=== PATIENT | female | born 1990 | race Caucasian/White ===

== ENCOUNTER 2025-07-10 11:56 | Observation (INO) | payer OTHER, SELFPAY ==
[2025-07-10] VITALS (7 sets, daily range): BP systolic 109–126; BP diastolic 57–63; PULSE 63–72; BMI 40.4
--- NOTE | 2025-07-10 12:00 | OBADM ---
This patient, Ania Sheppard, admitted to the OB room [facility] for observation. Patient/family oriented to hospital policies and general routines including ID bracelet, bed and alarms, visiting hours, pain management, procedures, bathroom and other care routines, personal items, smoking policy, room service/diet, and visiting hours. Patient/Family are encouraged to report perceived risks to care and to ask questions if they do not understand what they are told or what they should do.
--- NOTE | 2025-07-10 13:08 | PC.NURSE ---
Dr Ash notified of patient fall, informed of no contractions and reassuring FHT's. Orders to monitor for 1 more hour and if reassuring may DC home with precautions.
--- OUTSIDE RECORDS SUMMARY | 2025-07-10 13:28 | XMS_ITS | Clinical Summary ---
Author Organization [facility] Address [address] [place] [address] Care Team Providers Care Railroad Dispatcher Name Role Phone Unavailable Primary Care Provider Unavailabl e Source Comments [facility],non-owned Affiliates and Associated Physician Practices is amultiple site organization consisting of ambulatory clinics and hospital sitesin [place], [place], [place] and [place]. This disclosure is being madepursuant to the Care Everywhere program and may not contain all information available regarding this patient. Last updated 18.[facility] Allergies Active Allergy Reactions Criticality Noted Date Comments Sulfa Drugs Unknown,Other,Diarrh ea,Dizziness,Rash, Shortness of Breath High 05/13/2021 Medications * Be aware that medications may not be up to date on this document. Alwaysverify current medications with the patient. albuterol HFA (VENTOLIN HFA) 108 (90 Base) MCG/ACT inhalerIndicati ons:Asthma Inhale 2 puffs by mouth every 4 hours as needed for Shortness of Breath or Wheezing Reasons: Asthma 1 Inhaler 9 Active Active Problems Problem Noted Date Diagnosed Date Sciatica 04/22/2019 Family History Medical History Relation Name Comments Diabetes - Type 2 Maternal Grandmother Relation Name Status Comments Father Alive Maternal Grandmother Mother Alive Social History Tobacco Use Types Packs/Day Years Used Date Smoking Tobacco: Every Day Cigarettes 0.5 10 Smokeless Tobacco: Never Tobacco Cessation:Ready to Q uit: No; Counseling Given: Yes Alcohol Use Standard Drinks/Week Comments Yes 0 (1 standard drink = 0.6 oz pur e alcohol) AUDIT-C Answer Date Recorded Frequency of Alcohol Consumption 2-4 times a thu04/22/2019 Average Number of Drinks 5 or 6 019 Frequency of Binge Drinking Never 04/07 Overall Financial Resource Strain (CARDIA) Answe r Date Recorded Difficulty of Paying Living Expenses Somewhat benjamin rd 04/22/2019 Hunger Vital Sign Answer Date Recorded Worried About Running Out of Food in the Last Ye ar Never true 04/22/2019 Ran Out of Food in the Last Year Never true 04/22/2019 PRAPARE - Transportation Answer Date Re corded Lack of Transportation (Medical) No 04/22/2019 Lack of Transportation (Non-Medical) No 04/22/2019 Education Answer Date Recorded What is the highest level of school you have completed or the highest degree you have received? GED or equivalent Comments No Sex and Gender Information Value Date Recorded Sex Assigned at Not on file Legal Sex Female 12:27 PM CDT Gender Identity Not on file Sexual Orientation Not on file Last Filed Vital Signs Vital Sign Reading Time Taken Comments Blood Pressure 123/75 07/08/2023 3:42 PM CDT Pulse 76 07/08/2023 3:42 PM CDT Temperature 36.9 C (98.4 F) 04/22/2019 3:30 PM CDT Respiratory Rate 16 04/22/2019 3:30 PM CDT Oxygen Saturation 97% 04/22/2019 3:30 PM CDT Inhaled Oxygen Concentration - - Weight 120.4 kg (265 lb 6.4 oz) 07/08/2023 3:42 PM CDT Height 167.6 cm (5' 6) 07/08/2023 3:42 PM CDT Body Mass Index 42.84 07/08/2023 3:42 PM CDT Plan of Treatment Health Maintenance Due Date Last Done Comments HEPATITIS C SCREENING 06/27/2008 DTAP/TDAP/TD VACCINES (1 - Tdap) 2009 HEPATITIS B VACCINE (1 of 3 - 19+ 3-dose series) 2009 PNEUMOCOCCAL VACCINE (1 of 2 - PCV) 2009 HPV VACCINE (1 - 3-dose SCDM series) 2017 DEPRESSION SCREENING 09/07/2024 COVID-19 VACCINE (1 - 2023-2 5 season) 2025 INFLUENZA VACCINE (#1) 2025 PAP SMEAR 05/29/2025 05/29/2022 ZOSTER VACCINE (1 of 2) 2040 HIV SCREENING Completed 06/03/2023 HIB VACCINE Aged Out No longer eligi ble based on patient's age to complete this topic MENINGOCOCCAL (Group B) VACC INE SHARED DECISION-MAKING Aged Out No longer eligibl e based on patient's age to complete this topic MENINGOCOCCAL GROUPS A/C/Y/W VACCINE Aged Out No longer eligible b ased on patient's age to complete this topic Insurance [facility] [place] Earl [address]
--- OUTSIDE RECORDS SUMMARY | 2025-07-10 13:28 | XMS_ITS | Clinical Summary ---
Author Organization [facility] Address [address] [place] [id number] Care Team Providers Care Counterintelligence Analyst Name Role Phone Myla Bravo NP Primary Care Provider [phone] Social History Tobacco Use Types Packs/Day Years Used Date Smoking Tobacco: Never Assessed Comments Unknown Sex and Gender Information Value Date Recorded Sex Assigned at Not on file Legal Sex Female 8:21 PM CDT Gender Identity Not on file Sexual Orientation Not on file Plan of Treatment Health Maintenance Due Date Last Done Comments Cervical Cancer Screening Pa p Smear (Age 30 to 64) Every 3 Years 1990 Annual Physical 1993 Hepatitis C 2008 DTaP, Tdap and Td Vaccines ( 1 - Tdap) 2009 Hepatitis B Vaccines (1 of 3 - 19+ 3-dose series) 2009 HPV Vaccines (1 - 3-dose SCD M series) 2017 Cervical Cancer Screening Pa p with HPV Testing (Age 30 to 64) Every 5 Years 2020 Cervical Cancer Screening with HPV 2020 COVID-19 Vaccine (2024-2 6 season) 2025 Influenza Adult (#1) 2025 Hepatitis A Vaccines Aged Out No long er eligible based on patient's age to complete this topic Meningococcal B Vaccine Aged Out No l onger eligible based on patient's age to complete this topic Meningococcal Vaccine Aged Out No anatoliy johnny eligible based on patient's age to complete this topic Pneumococcal Vaccine: Pediat rics (0 to 5 Years) and At-Risk Patients (6 to 49 Years) Aged Out No longer eligible b ased on patient's age to complete this topic RSV Immunizations Under 20 Months Aged Out No longer eligible based on patient's age to complete this topic Care Teams Counterintelligence Analyst Relationship Specialty Start Date End Date Myla Bravo NP [facility] General 10/18/14
--- OUTSIDE RECORDS SUMMARY | 2025-07-10 13:28 | XMS_ITS | Data Portability ---
Author Organization [facility] [place] Address [address] [place] [address] [place] [address] Assessment No assessment recorded. Plan of Treatment Reminders Order Date Submit Date Provider Last Modified By Organization Details Last Modified Time Details Appointments OB ROUTINE 2024 01:15P Christopher MERAZ MD Not available Not available Not available U/S OB GROWTH 2024 11:00A M ULTRASOUND Not available Not available Not available OB ROUTINE 2024 11:30A M ALFONSO MERAZ MD Not available Not available Not available Lab drug screen, urine 2024 025 [email or web address] [place], [address], [place], [address], 07/04/2025 13:11:27 culture , urine 2024 025 [facility] (Lab), [address] [facility] [address], [place], [address], 07/06/2025 11:08:02 Referral None recorde d. Procedures None recorde d. Surgeries None recorde d. Imaging US, obstetr ic, follow- up 2024 025 [facility], [address], [address], [place], [address], 07/06/2025 15:56:53 US, obstetr ic, follow- up 2024 025 [email or web address] [place], [address], [place], [address], 06/06/2025 15:04:50 US, obstetr ic, 2nd or 3rd trimest er 2024 025 [place], [address], [place], [address], 05/09/2025 18:33:59 Medication Orders None recorde d. Patient TargetsNo targets recorded. Patient InstructionsNo instructions recorded. Reason for Referral None Reported. Results Created Date Observation Date Name Description Value Unit Range Abnormal Flag Note LastModifiedBy Organization Detail LastModifiedTime 05/09/2005/09/2025 US, obste tric, 2nd or 3rd trime ster No observ ation record ed. [email or web address] [place] [address], [place], [address], 05/09/2025 12:58:46 05/09/20 25 05/09/2025 US, obste tric, 2nd or 3rd trime ster No observ ation record ed. [email or web address] [address], [place], [address], 05/10/2025 16:00:47 06/06/20 25 06/06/2025 US, obste tric, follo w-up No observ ation record ed. [email or web address] Janice [address], [place], [address], 06/09/2025 17:44:36 06/06/20 25 06/06/2025 US, obste tric, follo w-up No observ ation record ed. [email or web address] [place] [address], [place], [address], 06/06/2025 15:04:12 07/04/20 25 07/04/2025 US, obste tric, follo w-up No observ ation record ed. [email or web address] [address], [place], [address], 07/06/2025 17:52:33 07/04/20 25 07/04/2025 US, obste tric, follo w-up No observ ation record ed. [email or web address] [place] [address], [place], [address], 07/04/2025 13:40:06 Result Notes None recorded. Problems Name Problem SNOMED Code Status Onset Date Resolution Date Notes Provider Name and Address Organization Details Recorded Time Diamniot ic-monoc horionic twins 09535885 Completed TTTS screenin g x2 weeks starting at 16 week [facility] 11:36:26 Obesity 931811343 Completed 34wk antenata l testing Rustsundar López [facility] 3 11:36:26 Diamniot ic-monoc horionic twins 16029544 Active 2022 G3 pregnanc y; TTTS with demise of one twin ALFONSO MERAZ MD [address], [place], [address], [facility] 4 15:39:33 Pregnanc y 28105321 Completed 202208/17/2023 Marce [facility], [facility] 5 12:41:07 Pregnanc y 23216949 Active 2024 Marce [facility], [facility] 5 12:41:07 Abnormal placenta affectin g manageme nt of mother 21781768 Active 2024 serial growth US ALFONSO MERAZ MD [address], [place], [address], [facility] 5 12:11:25 Steriliz ation educatio n Active 2024 ALFONSO MERAZ MD [address], [place], [address], [facility] 5 12:11:46 Past pregnanc y history of section 185241124 Active 2024 desires repeat with tubal ALFONSO MERAZ MD [address], [place], [address], [facility] 5 12:12:01 Problem Notes None recorded. Procedures Surgical History Date Name Laterality Status Provider Name and Address Organization Details Recorded Time 4 Caesarean Section completed LISSETT Peralta [facility] 02/22/2025 14:34:09 2 Date of Last Pap Smear completed Arelis Benites [facility] 06/03/2023 15:38:01 7 procedure on knee completed Arelis Benites [facility] 06/03/2023 15:42:19 7 procedure on knee completed Arelis Benites [facility] 06/03/2023 15:42:14 4 Caesarean Section completed Arelis Benites [facility] 06/03/2023 15:41:52 Imaging Results None recorded. Procedure Notes None recorded. Medical Equipment None Reported. Allergies Allergen ID Allergen Name Allergen Category Reaction Reaction Severity Criticality Documentation Date Start Date Code Code System Note Provider Name and Address Organization Details Recorded Time 64310 Substance with sulfonami de structure and antibacte rial mechanism of action (substanc e) medicatio n Not available Not available Not available 06/03/2023 34495 8003 SNOMED Arelis Benites [facility] 3 15:38:01 Medications Name Sig Start Date Stop Date Status Note LastModified by Organization Details LastModified Time desonide 0.05 % topical cream APPLY TOPICALLY TO THE AFFECTED AREA TWICE DAILY FOR 10 DAYS 02/22 completed Not Available Not Available Not Available acetaminoph en 500 mg tablet 12/08 completed Not Available Not Available Not Available gentamicin 0.3 % eye drops INSTILL 1 DROP IN BOTH EYES FOUR TIMES DAILY 06/03 completed Not Available Not Available Not Available nifedipine 10 mg capsule TAKE 1 CAPSULE BY MOUTH EVERY 6 HOURS FOR 3 DOSES 12/08 completed Not Available Not Available Not Available docusate sodium 100 mg capsule 12/08 completed Not Available Not Available Not Available gabapentin 300 mg capsule 12/08 completed Not Available Not Available Not Available ibuprofen 600 mg tablet 12/08 completed Not Available Not Available Not Available polyethylen e glycol 3350 17 gram/dose oral powder 12/08 completed Not Available Not Available Not Available oxycodone 5 mg tablet 12/08 completed Not Available Not Available Not Available active Not Available Not Avai lable Not Available FeroSul 325 mg (65 mg iron) tablet TAKE 1 TABLET BY MOUTH DAILY WITH BREAKFAST 12/08 completed Not Available Not Available Not Available Vitals Date Recorded Body height Body mass index (BMI) Body weight Systolic And Diastolic Provider Name and Address Organization Details Last Updated DateTime 05/09/2025 165.1 cm 42.8 kg/m2 554261.24 g 127/83 mm[Hg] Danna Ernst [facility] 05/09/2025 10:50:12 Date Recorded Body weight Body mass index (BMI) Body height Systolic And Diastolic Provider Name and Address Organization Details Last Updated DateTime 06/06/2025 289090.38 568 g 43.9 kg/m2 165.1 cm 129/81 mm[Hg] Casandra [facility] 06/06/2025 12:41:29 Date Recorded Body weight Systolic And Diastolic Provider Name and Address Organization Details Last Updated DateTime 07/04/2025 843551.34659 g 120/81 mm[Hg] [facility] 07/04/2025 13:07:28 Social History Question Answer Notes LastModified by Organizat ion Details LastModified Time Tobacco Smoking Status Former Smoker Arelis barber, [facility] 06/03/2023 15:41:33 If You Are , What Was Your Level Of Alcohol Consumption Prior To ? Occasional [email or web address] Information not available 06/03/2023 Are You Blind Or Do You Have Difficulty Seeing? No [email or web address] Information not available 06/03/2023 What Is Your Level Of Caffeine Consumption? Moderate [email or web address] Information not available 06/03/2023 How Much Tobacco Do You Chew? None [email or web address] Information not available 06/03/2023 In The 14 Days Before Symptom Onset, Have You Had Close Contact With A Laboratory-confir med COVID-19 While That Case Was Ill? No [email or web address] Information not available 06/03/2023 In The 14 Days Before Symptom Onset, Have You Had Close Contact With A Person Who Is Under Investigation For COVID-19 While That Person Was Ill? No [email or web address] Information not available 06/03/2023 Have You Been To An Area Known To Be High Risk For COVID-19? No [email or web address] Information not available 06/03/2023 Are You Deaf Or Do You Have Serious Difficulty Hearing? No [email or web address] Information not available 06/03/2023 What Type Of Diet Are You Following? REGULAR [email or web address] Information not available 05/09/2025 What Is The Highest Grade Or Level Of School You Have Completed Or The Highest Degree You Have Received? MV06848-5 [email or web address] Information not available 06/03/2023 Are There Any Guns Present In Your Home? No [email or web address] Information not available 06/03/2023 Do You Use Your Seat Belt Or Car Seat Routinely? Yes [email or web address] Information not available 06/03/2023 Do You Have Smoke And Carbon Monoxide Detectors In Your Home? Yes [email or web address] Information not available 06/03/2023 How Much Tobacco Do You Smoke? No [email or web address] Information not available 06/03/2023 Do You Use Sunscreen Routinely? Yes [email or web address] Information not available 06/03/2023 Has Tobacco Cessation Counseling Been Provided? No [email or web address] Information not available 06/03/2023 Have You Used IV Drugs? No [email or web address] Information not available 06/03/2023 Do You Have Difficulty Walking Or Climbing Stairs? No Information not available 06/03/2023 Sex: Unknown Functional Status Question Answer Note LastModified by Organizat ion Details LastModified Time Do you use any illicit or recreational drugs? No [email or web address] Information not available 06/03/2023 Do you or have you ever used any other forms of tobacco or nicotine? Yes [email or web address] Information not available 06/03/2023 What is your level of alcohol consumption? None [email or web address] Information not available 06/03/2023 Are you able to walk independently without assistance or assistive devices? YESWOREST [email or web address] Information not available 06/03/2023 Are you able to care for yourself independently? Yes [email or web address] Information not available 06/03/2023 What is your occupation? Stay at home mom [email or web address] Information not available 06/03/2023 Do you have difficulty dressing, bathing, grooming, or toileting? No [email or web address] Information not available 06/03/2023 Do you or have you ever used e-cigarettes or vape? Former user of electronic cigarettes [email or web address] Information not available 06/03/2023 What is your exercise level? Occasional [email or web address] Information not available 06/03/2023 Mental Status Question Answer Note LastModified by Organization D etails LastModified Time Do you feel stressed (tense, restless, nervous, or anxious, or unable to sleep at night)? UE4564-6 [email or web address] Information not available 06/03/2023 Family History Relationship Description Onset Age of this Age Resolved Age Notes LastModified by Organization Details LastModified Time Maternal Grandmother Diabetes mellitus [email or web address] Not available 06/03 15:41:02 Medical History Condition Response Allergies (Food, seasonal, environmental ) N Other N Breast Cancer N Drug/Latex Allergies/Reactions Y Blood Transfusion N Dermatologic Disorders N Lung Disease N Defects or Inherited Disease N Breast Problem N Gestational Diabetes N Hematologic disorders N Anesthesia Complications N History of STI N Deep Vein Thrombosis N Polycystic ovary syndrome Y Anxiety Disorder N Autoimmune disease N Arthritis N Infertility Y Polyps N Acid Reflux (GERD) N History of abnormal pap N Cancer N Stroke N Varicosities N Neurologic/Epilepsy N Endometriosis N High Cholesterol N Headaches N Fibromyalgia N Kidney Disease N Heart Problems N Kidney or Bladder Problems N Thyroid Problems N GI Problems N Eating Disorder N Anemia N Art (IVF or FET) N Psychiatric Illness N Ovarian Cancer N Diabetes N Pulmonary (TB, Asthma) N Hepatitis/Liver Disease N No Past Medical History N Eczema N Urinary Tract Infection N Abuse/Domestic Violence N Asthma N Trauma/Violence N Depression/ depression N Heart Disease N Pre-Eclampsia N Hypertension N Osteoporosis N Thrombophilias N Gynecological History Statement/Question Response Date of LMP 12/20/2024 On BCP's at Conception? N N Was last menstrual period normal Y STIs/STDs N HPV Vaccine N Duration of Flow (days) 7 Current Control Method Age at First Child 23 Frequency of Cycle (Q days) 34 Sexually Active? Y Age of first menstrual cycle 9 Date of Last Pap Smear 05/08/2022 Sexual Problems? N Desired Control Method None LMP Definite N Obstetrics History GPAL:G 6 P 2 1 2 3 Type Value Full Term 2 Spontaneous 2 Premature 1 Living 3 Total 6 Past Encounters Encounter ID Performer Location Encounter Start Date Encounter Closed Date Diagnosis/Indication Diagnosis SNOMED-CT Code Diagnosis ICD10 Code Diagnosis IMO Codes Diagnosis Note [id number] Arnold Herrera MD [place] [address],[place] [address] 06/03/2023 14:10:43 06/03/2023 15:29:55 screening 603942391 Z36.87 O30.031 Z3A.11 [id number] Mary Shultz [facility] [address],[place] [address] 06/03/2023 14:14:33 06/03/2023 16:23:10 Amenorrhea 80466794 N91.2 Venereal d isease screening 292591473 Z11.3 Diamniotic -monochorio julieta twins 93295525 O30.039 plan 12 week new ob and first look then ref to [facility] today, declines NIPS/bryce er [id number] ALFONSO MERAZ MD [place] [address],[place] [address] 06/16/2023 13:53:48 06/16/2023 14:56:13 screening 151354481 Z36.82 Z3A.13 [id number] ALFONSO MERAZ MD [place] [address],[place] [address] 06/16/2023 13:57:39 06/16/2023 16:44:01 Routine care 811784087 Z34.91 Monochorio julieta diamniotic twin 073272982 O30.009 - needs q2 week US for TTTS screening [id number] ALFONSO MERAZ MD [place] [address],[place] [address] 12/09/2023 12:37:59 12/09/2023 15:46:28 care 727081360 Z39.2 S/p RLTCS 6 weeks ago here today for a visit.1. Patient recovering well2. Plans to continue breast feeding3. Interested in condoms for contracept ion at this time. Risks, benefits, and alternativ es reviewed with the patient4. Patient instructed to follow up in 1 year for well woman exam unless need arises prior [id number] ALFONSO MERAZ MD [place] [address],[place] [address] 02/22/2025 13:53:16 02/22/2025 14:18:34 [id number] ALFONSO MERAZ MD [place] [address],[place] [address] 02/22/2025 13:53:28 02/22/2025 15:14:32 Past history of section 457640769 Z98.278 6038581 - s/p 2 LTCS, last 10/2023- recommend repeat c section due to increased risk of uterine rupture after multiple c sections test positive 032923000 Z32.01 244300 1. Exam today within normal limits.2. Ultrasound today confirms GA and viability. EDC . GC/Clamydi a testing done: will f/u as indicated. Patient declined pap smear4. ACOG guidelines and plan of care for reviewed with patient. All questions answered.5 . Return to office at 12 weeks for new OB visit6. Will need new OB labs at next visit.7. Genetic screening: declined. [id number] ALFONSO MERAZ MD [place] [address],[place] [address] 03/14/2025 11:19:42 03/14/2025 12:11:45 screening 133140552 Z36.82 Z3A.12 [id number] MD Hema [facility] [address],[place] [address] 03/14/2025 11:20:07 03/14/2025 13:29:00 care status 702422946 Z34.81 [id number] MD Hema [facility] [address],[place] [address] 04/11/2025 10:39:40 04/11/2025 11:29:09 care status 127784629 Z34.82 40579744 [id number] ALFONSO MERAZ MD [place] [address],[place] [address] 05/09/2025 09:25:49 05/09/2025 10:56:26 Ultrasound scan - obstetric 687526740 Z36.3 Z3A.20 12905 [id number] ALFONSO MERAZ MD [place] [address],[place] [address] 05/09/2025 09:26:20 05/09/2025 12:17:58 Abnormal placenta affecting management of mother 39398804 O43.199 76597104 - serial growth US Past pregn nancy history of section 893879710 Z98.891 52791207 - s/p 2 LTCS, last 10/2023- recommend repeat c section due to increased risk of uterine rupture after multiple c sections Consultation 75310254 Z3 0.09 716421 - patient desires permanent sterilizat ion- discussed risks, benefits, and alternativ es of bilateral salpingect ke[place], including risks of bleeding, infection and injury to surroundin g organs. Also discussed alternativ e contracept donato options including partner vasectomy and patient declines. Gestation period, 20 weeks 29572235 Z3A.20 4549926 - continue PNV [id number] ALFONSO MERAZ MD [place] [address],[place] [address] 06/06/2025 11:51:51 06/06/2025 13:01:25 anatomy study 495497544 Z36.2 Z3A.24 1490085251 [id number] ALFONSO MERAZ MD [place] [address],[facility] [address] 06/06/2025 11:54:10 06/06/2025 16:04:14 Abnormal placenta affecting management of mother 69484547 O43.199 32413500 - serial growth US Past pregn nancy history of section 288135853 Z98.891 89784960 - s/p 2 LTCS, last 10/2023- recommend repeat c section due to increased risk of uterine rupture after multiple c sections Gestation period, 24 weeks 346138655 Z3A.24 4840241 [id number] ALFONSO MERAZ MD [place] [address],[place] [address] 07/04/2025 11:56:33 07/04/2025 13:30:47 Maternal obesity complicating , childbirth and the puerperium, antepartum 6553213316 07 O99.210 Z3A.28 5694789383 [id number] ALFONSO MERAZ MD [place] [address],[place] [address] 07/04/2025 11:58:22 07/04/2025 14:15:56 state of fetus 68747471 Z34.90 3937924246 Abnormal p lacenta affecting management of mother 90398060 O43.199 44430184 - serial growth US Past pregn nancy history of section 012733625 Z98.891 33062142 - s/p 2 LTCS, last 10/2023- recommend repeat c section due to increased risk of uterine rupture after multiple c sections Gestation period, 28 weeks 33816268 Z3A.28 9302302 Health Concerns Section Related Observation LastModified by Organization Detai ls LastModified Time None Recorded Concern Status LastModified by Organization Details LastModified Time None Recorded Advance Directives Directive None Recorded Payers Insurance Date Sequence Insurance Name Policy Number Policy Darnell Covered Member ID Darnell Member ID Guarantor Name 07/04/2025 1 BRIANNA [id number] Rodrigo Sheppard [id number] 2 Ania Sheppard Notes Date Note Type Note Provider Name and Address Organization Details Recorded Time 05/09/2025 text/html Generic HPI TemplateReported by Patient ALFONSO MERAZ MD [address], [place], [address], [facility] 05/09/2025 12:13:35 06/06/2025 text/html Generic HPI TemplateReported by Patient ALFONSO MERAZ MD [address], [place], [address], [facility] 06/06/2025 15:51:39 07/04/2025 text/html Generic HPI TemplateReported by Patient ALFONSO MERAZ MD [address], [place], [address], [facility] 07/04/2025 14:14:44 OBGyn Episode Ob Episode Information Episode Created Date Number of Fetuses Patient Bloodtype Patient rh Status Prepregnancy Weight lbs Domestic Partner Domestic Partner Phone Father Name Rotary Cutter Status 03/14/20 25 1 CLOSED Fetus Data First Name Last Name Admitted to NICU Weight (g) Sex Living Outcome Pediatric Complications Fetus ID Race Codes Race Delivery Type , Spontane ous [id number] Justin Calculation Initial Justin Date Initial Exam Date Initial Exam Provider Initial Ultrasound Date Last Menstrual Period Date Ultra Sound Weeks Gestation 0 Eighteen To Twenty Week Justin Update Ultra Sound Date Fundal Height At Umbil Quickening Date Ultra Sound Latest Weeks Gestation Final Justin Confirmed By Final Justin Confirmed Date Final Justin Date Ultra Sound Latest Days Gestation 0 0 Menstrual History Last Menstrual Date Menses Monthly On Bcp Conception Prior Menses Frequency Hcg Plus Date Menarche Onset Age Delivery Information Delivery Date Delivery Type Labor Anesthesia Weeks Gestation Incision Type Labor Labor Length Hrs Delivered By Post Complications Tubal Sterilization Discharge Date Comments 5 Discharge Information Feeding Method Contraceptive Method Maternal HG B and HCT Levels Ob Episode Information Episode Created Date Number of Fetuses Patient Bloodtype Patient rh Status Prepregnancy Weight lbs Domestic Partner Domestic Partner Phone Father Name Rotary Cutter Status 06/03/20 23 1 CLOSED Fetus Data First Name Last Name Admitted to NICU Weight (g) Sex Living Outcome Pediatric Complications Fetus ID Race Codes Race Delivery Type 3656.85 8704 F Full Term [id number] Primary Justin Calculation Initial Justin Date Initial Exam Date Initial Exam Provider Initial Ultrasound Date Last Menstrual Period Date Ultra Sound Weeks Gestation 0 Eighteen To Twenty Week Justni Update Ultra Sound Date Fundal Height At Umbil Quickening Date Ultra Sound Latest Weeks Gestation Final Justin Confirmed By Final Justin Confirmed Date Final Justin Date Ultra Sound Latest Days Gestation 0 0 Menstrual History Last Menstrual Date Menses Monthly On Bcp Conception Prior Menses Frequency Hcg Plus Date Menarche Onset Age Delivery Information Delivery Date Delivery Type Labor Anesthesia Weeks Gestation Incision Type Labor Labor Length Hrs Delivered By Post Complications Tubal Sterilization Discharge Date Comments 4 41.3 failed induction Discharge Information Feeding Method Contraceptive Method Maternal HG B and HCT Levels Ob Episode Information Episode Created Date Number of Fetuses Patient Bloodtype Patient rh Status Prepregnancy Weight lbs Domestic Partner Domestic Partner Phone Father Name Rotary Cutter Status 02/23/20 25 1 CLOSED Fetus Data First Name Last Name Admitted to NICU Weight (g) Sex Living Outcome Pediatric Complications Fetus ID Race Codes Race Delivery Type 2721.55 2 F Full Term [id number] Repeat Justin Calculation Initial Justin Date Initial Exam Date Initial Exam Provider Initial Ultrasound Date Last Menstrual Period Date Ultra Sound Weeks Gestation 0 Eighteen To Twenty Week Justin Update Ultra Sound Date Fundal Height At Umbil Quickening Date Ultra Sound Latest Weeks Gestation Final Justin Confirmed By Final Justin Confirmed Date Final Justin Date Ultra Sound Latest Days Gestation 0 0 Menstrual History Last Menstrual Date Menses Monthly On Bcp Conception Prior Menses Frequency Hcg Plus Date Menarche Onset Age Delivery Information Delivery Date Delivery Type Labor Anesthesia Weeks Gestation Incision Type Labor Labor Length Hrs Delivered By Post Complications Tubal Sterilization Discharge Date Comments 4 32.4 twin 1 lost Discharge Information Feeding Method Contraceptive Method Maternal HG B and HCT Levels Ob Episode Information Episode Created Date Number of Fetuses Patient Bloodtype Patient rh Status Prepregnancy Weight lbs Domestic Partner Domestic Partner Phone Father Name Rotary Cutter Status 06/03/20 23 1 CLOSED Fetus Data First Name Last Name Admitted to NICU Weight (g) Sex Living Outcome Pediatric Complications Fetus ID Race Codes Race Delivery Type 3770.25 6704 M Full Term [id number] V Back Justin Calculation Initial Justin Date Initial Exam Date Initial Exam Provider Initial Ultrasound Date Last Menstrual Period Date Ultra Sound Weeks Gestation 0 Eighteen To Twenty Week Justin Update Ultra Sound Date Fundal Height At Umbil Quickening Date Ultra Sound Latest Weeks Gestation Final Justin Confirmed By Final Justin Confirmed Date Final Justin Date Ultra Sound Latest Days Gestation 0 0 Menstrual History Last Menstrual Date Menses Monthly On Bcp Conception Prior Menses Frequency Hcg Plus Date Menarche Onset Age Delivery Information Delivery Date Delivery Type Labor Anesthesia Weeks Gestation Incision Type Labor Labor Length Hrs Delivered By Post Complications Tubal Sterilization Discharge Date Comments 2 39.4 Discharge Information Feeding Method Contraceptive Method Maternal HG B and HCT Levels Ob Episode Information Episode Created Date Number of Fetuses Patient Bloodtype Patient rh Status Prepregnancy Weight lbs Domestic Partner Domestic Partner Phone Father Name Rotary Cutter Status 06/16/20 23 2 O Positive 260 CLOSED Fetus Data First Name Last Name Admitted to NICU Weight (g) Sex Living Outcome Pediatric Complications Fetus ID Race Codes Race Delivery Type [id number] Problems Problem Notes declined cf/sma/niptMFM on 09/20/22 315p U/S ONLYRPR +, reflex negative - repeat at 28 wk Problem Name Start Date End Date Resolution Snomed Code Not e Diamniotic-monochori onic twins [id number] TTTS screening x2 weeks starting at 16 week Obesity [id number] 34wk anten atal testing Justin Calculation Initial Justin Date Initial Exam Date Initial Exam Provider Initial Ultrasound Date Last Menstrual Period Date Ultra Sound Weeks Gestation 12/22/2023 06/16/2023 06/03/2023 11 Eighteen To Twenty Week Justin Update Ultra Sound Date Fundal Height At Umbil Quickening Date Ultra Sound Latest Weeks Gestation Final Justin Confirmed By Final Justin Confirmed Date Final Justin Date Ultra Sound Latest Days Gestation 0 0 Pre- Flowsheet Flowsheet Date 06/16/2023 Vazquez Score Blood Edema Fundus Height Fundus Units Glucose Ketones Leukocytes Nitrite Labor Signs Protein Cervic Dilation Cervic Effacement Cervic Station Type Weight in lbs Pre/Post Dialysis Refused BP Diastolic BP Location Tested BP Systolic BP Type Fetus Heart Rate Present Fetus Movement Comments Flowsheet Date 06/16/2023 Vazquez Score Blood Edema Fundus Height Fundus Units Glucose Ketones Leukocytes Nitrite Labor Signs Protein Cervic Dilation Cervic Effacement Cervic Station neg none 13 trace Type Weight in lbs Pre/Post Dialysis Refused Weight 262.169803011711 BP Diastolic BP Location Tested BP Systolic BP Type 83 133 Fetus Heart Rate Present A 150 B 170 Fetus Movement A No B No Comments Presents to establish OB car e. has been complicated by mono-di twins. 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 Will start TTTS screening at 16 week with q2 week US. [facility] visit scheduled for 07/08. NB/NT wnl x2. Nausea improving. Declines genetic testing. Menstrual History Last Menstrual Date Menses Monthly On Bcp Conception Prior Menses Frequency Hcg Plus Date Menarche Onset Age Genetic Screening And Infection History Question Response Note Mental Retardation/Autism false Patient's Age Will Be 35 Years Or Older At Estim ated Date of Delivery false Thalassemia (Lebanese, Faroese, Mediterranean, Or Background): MCV < 80 false Neural Tube Defect (Meningomyelocele, Spina Bifi da, Or Anencephaly) false Congenital Heart Defect false Down Syndrome false Beau-Sachs (eg, Hoahaoism, Cajun, Micronesian-Italian) f alse Noy Disease false Sickle Cell Disease Or Trait () false Hemophilia Or Other Blood Disorders false Muscular Dystrophy false Cystic Fibrosis false [place]'s Chorea false Intellectual Disability/Autism false If Yes, Was Person Tested For Fragile X? false Other Inherited Genetic Or Chromosomal Disorder false Maternal Metabolic Disorder (eg, Type 1 Diabetes , PKU) false Patient Or Baby's Father Had A Child With Defects Not Listed Above false Recurrent Loss, Or A Stillbirth false Medications (including Suppl ements, Vitamins, Herbs, OTC Drugs), Illicit/Recreational Drugs, Alcohol false If Yes, Agent(s) And Strength/Dosage false Any Other Genetic History false Live With Someone With TB Or Exposed To TB false Patient Or Partner Has History Of Genital Herpes false Rash Or Viral Illness Since Last Menstrual Perio d false History Of STD, Gonorrhea, Chlamydia, HPV, Syphi lis false Other Infection History false History of HIV false History of Hepatitis false Prior GBS-infected child false Hemoglobinopathy Or Carrier false Other Structural Defect false Recent Travel History Outside of Country false Delivery Information Delivery Date Delivery Type Labor Anesthesia Weeks Gestation Incision Type Labor Labor Length Hrs Delivered By Post Complications Tubal Sterilization Discharge Date Comments Discharge Information Feeding Method Contraceptive Method Maternal HG B and HCT Levels Ob Episode Information Episode Created Date Number of Fetuses Patient Bloodtype Patient rh Status Prepregnancy Weight lbs Domestic Partner Domestic Partner Phone Father Name Rotary Cutter Status 03/14/20 25 1 O Positive Rordigo Sheppard OPEN Fetus Data First Name Last Name Admitted to NICU Weight (g) Sex Living Outcome Pediatric Complications Fetus ID Race Codes Race Delivery Type [id number] Problems Problem Notes Problem Name Start Date End Date Resolution Snomed Code Not e Abnormal placenta affecting management of mother 05/09/2025 [id number] serial growth U S Past history of section 05/09/2025 [id number] desires repeat with tubal Sterilization education 05/09/2025 13853 [id number] Justin Calculation Initial Justin Date Initial Exam Date Initial Exam Provider Initial Ultrasound Date Last Menstrual Period Date Ultra Sound Weeks Gestation 09/26/2025 03/14/2025 02/22/2025 12/20/2024 9 Eighteen To Twenty Week Justin Update Ultra Sound Date Fundal Height At Umbil Quickening Date Ultra Sound Latest Weeks Gestation Final Justin Confirmed By Final Justin Confirmed Date Final Justin Date Ultra Sound Latest Days Gestation 0 03/14/2025 09/26/19 26 0 Pre-anand Flowsheet Flowsheet Date 03/14/2025 Vazquez Score Blood Edema Fundus Height Fundus Units Glucose Ketones Leukocytes Nitrite Labor Signs Protein Cervic Dilation Cervic Effacement Cervic Station Type Weight in lbs Pre/Post Dialysis Refused Weight 251.061952852807 BP Diastolic BP Location Tested BP Systolic BP Type 82 L arm 129 sitting Fetus Heart Rate Present A Present Fetus Movement Comments Patient presents to [facility] care. Hx of mono-di twin in her last , complicated by TTTS and demise of 1 twin. Hx of c section x2, plan for repeat. otherwise uncomplicated. No nausea or cramping. NT/NB wnl today, declines NIPT. Will draw new OB labs today. RTC 4 weeks for routine care. Flowsheet Date 04/11/2025 Vazquez Score Blood Edema Fundus Height Fundus Units Glucose Ketones Leukocytes Nitrite Labor Signs Protein Cervic Dilation Cervic Effacement Cervic Station Type Weight in lbs Pre/Post Dialysis Refused Weight 254.469336937799 BP Diastolic BP Location Tested BP Systolic BP Type 80 L arm 136 sitting Fetus Heart Rate Present A 145 Fetus Movement A Yes Comments Doing well, some flutters. N o cramping or bleeding. New OB labs wnl. Discussed anatomy US for next visit. RTC 4 weeks. Flowsheet Date 05/09/2025 Vazquez Score Blood Edema Fundus Height Fundus Units Glucose Ketones Leukocytes Nitrite Labor Signs Protein Cervic Dilation Cervic Effacement Cervic Station Type Weight in lbs Pre/Post Dialysis Refused BP Diastolic BP Location Tested BP Systolic BP Type Fetus Heart Rate Present Fetus Movement Comments Flowsheet Date 05/09/2025 Vazquez Score Blood Edema Fundus Height Fundus Units Glucose Ketones Leukocytes Nitrite Labor Signs Protein Cervic Dilation Cervic Effacement Cervic Station Type Weight in lbs Pre/Post Dialysis Refused Weight 257.880995349677 BP Diastolic BP Location Tested BP Systolic BP Type 83 L arm 127 sitting Fetus Heart Rate Present A Present Fetus Movement A Yes Comments Doing well, good movem ent. No cramping or bleeding. Anatomy incomplete, needs heart views and left fingers. Marginal cord insertion, discussed serial growth US. She would also like to discuss bilateral salpingectomy at time of her c section. She has completed childbearing and would like a permanent form of control. r/b/a discussed. RTC 4 weeks. Flowsheet Date 06/06/2025 Vazquez Score Blood Edema Fundus Height Fundus Units Glucose Ketones Leukocytes Nitrite Labor Signs Protein Cervic Dilation Cervic Effacement Cervic Station Type Weight in lbs Pre/Post Dialysis Refused BP Diastolic BP Location Tested BP Systolic BP Type Fetus Heart Rate Present Fetus Movement Comments Flowsheet Date 06/06/2025 Vazquez Score Blood Edema Fundus Height Fundus Units Glucose Ketones Leukocytes Nitrite Labor Signs Protein Cervic Dilation Cervic Effacement Cervic Station Type Weight in lbs Pre/Post Dialysis Refused 264.026860017949 BP Diastolic BP Location Tested BP Systolic BP Type 81 L arm 129 sitting Fetus Heart Rate Present Fetus Movement A Yes Comments Good movement. No cram ping or bleeding. Anatomy complete and normal, EFW 67%. Would like to check glucose x2 weeks instead of GCT. Discussed other 28 week labs. Patient hesitant for HIV and RPR. RTC 4 weeks. Flowsheet Date 07/04/2025 Vazquez Score Blood Edema Fundus Height Fundus Units Glucose Ketones Leukocytes Nitrite Labor Signs Protein Cervic Dilation Cervic Effacement Cervic Station Type Weight in lbs Pre/Post Dialysis Refused BP Diastolic BP Location Tested BP Systolic BP Type Fetus Heart Rate Present Fetus Movement Comments Flowsheet Date 07/04/2025 Vazquez Score Blood Edema Fundus Height Fundus Units Glucose Ketones Leukocytes Nitrite Labor Signs Protein Cervic Dilation Cervic Effacement Cervic Station Type Weight in lbs Pre/Post Dialysis Refused 269.575094205141 BP Diastolic BP Location Tested BP Systolic BP Type 81 L arm 120 sitting Fetus Heart Rate Present A Present Fetus Movement A Yes Comments Doing well, no cramping or b leeding. Good movement. 2 weeks glucose testing wnl, ok to d/c. Will order other 28 week labs for next visit. Discussed Tdap vaccine. EFW 27%, repeat in 4 weeks. RTC 2 weeks. Menstrual History Last Menstrual Date Menses Monthly On Bcp Conception Prior Menses Frequency Hcg Plus Date Menarche Onset Age 0412/20/2024 Delivery Information Delivery Date Delivery Type Labor Anesthesia Weeks Gestation Incision Type Labor Labor Length Hrs Delivered By Post Complications Tubal Sterilization Discharge Date Comments Discharge Information Feeding Method Contraceptive Method Maternal HG B and HCT Levels Ob Episode Information Episode Created Date Number of Fetuses Patient Bloodtype Patient rh Status Prepregnancy Weight lbs Domestic Partner Domestic Partner Phone Father Name Rotary Cutter Status 03/14/20 25 1 CLOSED Fetus Data First Name Last Name Admitted to NICU Weight (g) Sex Living Outcome Pediatric Complications Fetus ID Race Codes Race Delivery Type , Spontane ous [id number] Justin Calculation Initial Justin Date Initial Exam Date Initial Exam Provider Initial Ultrasound Date Last Menstrual Period Date Ultra Sound Weeks Gestation 0 Eighteen To Twenty Week Justin Update Ultra Sound Date Fundal Height At Umbil Quickening Date Ultra Sound Latest Weeks Gestation Final Justin Confirmed By Final Justin Confirmed Date Final Justin Date Ultra Sound Latest Days Gestation 0 0 Menstrual History Last Menstrual Date Menses Monthly On Bcp Conception Prior Menses Frequency Hcg Plus Date Menarche Onset Age Delivery Information Delivery Date Delivery Type Labor Anesthesia Weeks Gestation Incision Type Labor Labor Length Hrs Delivered By Post Complications Tubal Sterilization Discharge Date Comments Discharge Information Feeding Method Contraceptive Method Maternal HG B and HCT Levels
--- OUTSIDE RECORDS SUMMARY | 2025-07-10 13:28 | XMS_ITS | Clinical Summary ---
Author Organization [facility] Address [address] [place] [address] Phone Care Team Providers Care S[employer] Blocks Pulper Name Role Phone Ernestina Mendez DO Primary Care Provider Allergies Active Allergy Reactions Criticality Noted Date Comments Sulfa (Sulfonamide Antibiotics) Rash,Anxiety,Diarrhea,Dizzi ness,Shortness of Breath/Wheezing High 05/13/2021 Medications PNV WITH CA COMBO.11/IRON/F A (PNV WITH CA 11-IRON FUM-FA ORAL) Take by mouth PATIENT STATES SHE RECEIVED INSTRUCTIONS FROM SURGEON'S OFFICE TO CONTINUE AND NOT STOP THIS MEDICATION FOR SURGERY DUE TO HER ANEMIA. Active CALCIUM ACETATE ORAL Take by mouth. Activ e [id number]-[id number] ORAL Take by mouth. Activ e L-TYROSINE ORAL Take by mouth. Active L-LYSINE ORAL Take by mouth. A ctive VITAMIN E ORAL Take by mouth. Active INOSITOL ORAL Take by mouth. A ctive IRON ORAL Take by mouth. Activ e Active Problems Problem Noted Date Diagnosed Date Pre-eclampsia, mild 04/09/2022 Uterine contractions during 04/09/2022 GBS (group B Streptococcus c ella), +RV culture, currently 03/26/2022 Polycystic ovary syndrome 11/26/2021 Asthma without status asthmaticus 03/25/2021 Overview (10/29/2021): Last Assessment & Plan: Chronic, uncontrolled-refills sent to pharmacy for her albuterol inhaler, however recommended considering a daily controller for better asthma control if consistently using her rescue inhaler > 2 times a week (states doesn't want to be on a daily controller at this time, however states she uses her inhaler on average 4 times a week). 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 Resolved Problems Problem Noted Date Diagnosed Date Resolved Date Status post arthroscopy of right knee 09/08/2017 10/29/2021 Complex tear of medial menis cus of right knee as current injury 08/04/2017 10/29/2021 Precordial pain 07/23/2017 10/29/2021 Shortness of breath 07/23/2017 10/29/19 Tobacco use 07/23/2017 10/29/2021 Morbid obesity with body mas s index of 40.0-49.9 07/23/2017 10/29/2021 Chest pain on breathing 07/23/201710/09 Elevated erythrocyte sedimentation rate 07/23/2017 10/29/2021 Morbid obesity with BMI of 40.0-44.9, adult 11/26/2016 10/29/2021 Status post reconstruction o f anterior cruciate ligament 10/29/2016 10/29/2021 Rupture of anterior cruciate ligament of right knee 09/19/2016 10/29/2021 Encounter for IUD removal 12/27/2015 Immunizations Immunization Administration Dates Next Due (ADACEL/BOOSTRIX)(10 YR UP) TDAP VACCINE, 0.5ML, IM 02/06/2022 (M-M-R II/PRIORIX)(12 MO UP) MEASLES, MUMPS AND RUBELLA VIRUS VACCINE, 0.5 ML IM/SUBCUT 04/12/2022 Family History Medical History Relation Name Comments Unknown Brother Healthy Daughter Unknown Father Anxiety Mother Heart Disease Mother Breast Cancer Neg Hx Colon Cancer Neg Hx Ovarian Cancer Neg Hx Relation Name Status Comments Brother Alive Daughter Alive Father Alive Mother Alive Social History Tobacco Use Types Packs/Day Years Used Date Smoking Tobacco: Former E-Cigarette/Mist Inhalation Device Quit: 10/29/2020 Smokeless Tobacco: Former Tobacco Cessation:Counseling Given: Not Answered Comments:5 CIGS PER DAY Alcohol Use Standard Drinks/Week Comments Not Currently 0 (1 standard drink = 0.6 oz pur e alcohol) SOCIAL Comments No Sex and Gender Information Value Date Recorded Sex Assigned at Not on file 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 Gender Identity Not on file Sexual Orientation Not on file 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 Not on file Not on file Not on file Last Filed Vital Signs Vital Sign Reading Time Taken Comments Blood Pressure 126/80 05/29/2022 11:04 AM CDT Pulse 66 04/12/2022 7:14 AM CDT Temperature 36.7 C (98.1 F) 04/12/2022 7:14 AM CDT Respiratory Rate 18 04/12/2022 7:14 AM CDT Oxygen Saturation 99% 04/10/2022 6:43 AM CDT Inhaled Oxygen Concentration - - Weight 106.5 kg (234 lb 12.8 oz) 2021 11:04 AM CDT Height 167.6 cm (5' 6) 04/09/2022 7:20 PM CDT Body Mass Index 37.9 04/09/2022 7:20 PM CDT Plan of Treatment Health Maintenance Due Date Last Done Comments HEPATITIS B VACCINES (1 of 3 - 19+ 3-dose series) 2009 HPV VACCINES (1 - 3-dose SCD M series) 2017 Preventative Visit- Commercial 09/07/2024 0 05/09/2021, 05/09/2021, 03/22/2021, Additional history exists INFLUENZA VACCINE (#1) 2025 PAP SMEAR 05/29/2025 05/29/2022, 12/27/2015 CERVICAL CANCER SCREENING 05/29/2027 HPV/Cotest (21-29) 05/29/2027 05/29/2022, 12/27/2015 HPV/Cotest (30-65) 05/29/2027 05/29/2022, 12/27/2015 DTAP/TDAP/TD VACCINES (3 - T d or Tdap) 02/07/2032 02/06/2022, 09/07/2013 Medical Devices Implanted Type Area Purchase Price Analyst Device Identifier Shelf Expiration Date Model / Serial / Lot Fixation Tib Tunneloc 10mm [id number] - [id number] Implanted:Qty: 1 on 10/13/2016 by Veto Fisher MD at [facility] Barrett Right: Knee [id number] [id number] 02/06/2021 [id number] / / [id number] Description:All Biomet compo nents are processed on requisition,[id number]. Fixation Fem Ezloc Std 9-10mm [id number] - [id number] Implanted:Qty: 1 on 10/13/2016 by Veto Fisher MD at [facility] Knee Right: Knee [employer] 05/07/2019 [id number] / / [id number] Description:BIOMET COMPONENT S PROCESSED ON REQ# [id number] Allgrft Tndn Ant Tib [id number] - [id number] Implanted:Qty: 1 on 10/13/2016 by Veto Fisher MD at [facility] Tendon Right: Knee [employer] [id number] 04/29/2021222707 / [id number] / Description:REQ#[id number] Procedures Procedure Name Priority Date/Time Associated Diagnosis Comments CERV/VAG CYTO SCREEN PAP W/HPV Routine 05/29/2022 11:46 AM CDT Visit for gynecologic examination Screening for HPV (human papillomavirus) Cervical cancer screening Screening examination for venereal disease from Last 3 Months or Most Recently Relevant to Health Maintenance Results * CERV/VAG CYTO SCREEN PAP W/HPV (05/29/2022 11:46 AM CDT) CLINICAL INFORMATION [facility] Comment:None given LAST MENSTRUAL PERIOD [facility] Comment:NONE GIVEN PREV PAP: [facility] Comment:NONE GIVEN PREV BX: [facility] Comment:NONE GIVEN SOURCE [facility] Comment:Endocervix ADEQUACY: [facility] Comment: Satisfactory for evaluation. Endocervical/transformation zone component present. Age and/or menstrual status not provided PAP INTERP [facility] Comment:Negative for intraep ithelial lesion or malignancy. COMMENT (PAP TEST) [facility] Comment: This case could not be evaluated with computer assisted technology. The slide was manually screened according to routine procedures. MARKLOGIC DEVELOPER: [facility] Comment: BKA, CT(ASCP) CT screening location: [place] [address] [place] [address] EXPLANATORY NOTE Que [employer] [place] Comment: EXPLANATORY NOTE: The Pap is a screening test for cervical cancer. It is not a diagnostic test and is subject to false negative and false positive results. It is most reliable when a satisfactory sample, regularly obtained, is submitted with relevant clinical findings and history, and when the Pap result is evaluated along with historic and current clinical information. HPV E6/E7 Not Detected Not Detected [facility] Comment: Methodology: Liquid Compounder-Mediated Amplification This assay detects E6/E7 viral messenger RNA (mRNA) from 14 high-risk HPV types (16,18,31,33,35,39,45,51,52,56,58,59,66,68). Cervical sources are required for HPV testing. If a vaginal source from a patient who has had a total hysterectomy with removal of cervix was submitted, please contact the testing laboratory for alternative testing options. For additional information, please refer to http://education.[employer]/faq/ISS729m1 (This link if provided for information/ educational purposes only.) Test Performed at: [facility] [id number] [place] [phone] Hang Barry D.O., MPH SL Genital SWAB OF ENDOCERVIX / Unknown 05/29/2022 11:46 AM CDT 05/29/2022 8:10 PM CDT Arelis Linn MD PATHOLOGY/CYTOL OGY ORDERABLES Final Result Performing Organization Address City/State/[facility] Co de Phone Number [facility] [phone] [address] from Last 3 Months or Most Recently Relevant to Health Maintenance Insurance RX [employer] RX Member Subscriber Plan / Payer (Ef fective for All Dates) Name:Ania Sheppard Relation to Subscriber:Spouse Name:Ania Sheppard Payer ID:Not on file Type:RX LDI Address: [facility] OPEN ACCESS HMO Advance Directives For more information, please contact: [phone] * Full Code (Latest Code Status on File) Date Activated Date Inactivated Comments 04/10/2022 6:50 PM 04/12/2022 3:25 PM * Full Code Date Activated Date Inactivated Comments 04/09/2022 11:35 PM 04/10/2022 3:24 PM * Full Code Date Activated Date Inactivated Comments 04/09/2022 7:19 PM 04/09/2022 11:35 PM * Full Code Date Activated Date Inactivated Comments 08/27/2017 11:34 AM 08/27/2017 7:32 PM * Full Code Date Activated Date Inactivated Comments 10/13/2016 6:54 AM 10/13/2016 2:40 PM Care Teams [employer] Pulper Relationship Specialty Start Date End Date Ernestina Mendez DO PCP - General Family Practice 07/21/17
--- OUTSIDE RECORDS SUMMARY | 2025-07-10 13:28 | XMS_ITS | Data Portability ---
Author Organization [employer] , [facility] Address [address] [place] [address] Assessment No assessment recorded. Plan of Treatment Reminders Order Date Submit Date Provider Last Modified By Organization Details Last Modified Time Details Appointments None recorded. Lab test, urine 2020 [facility], [address] [place], [address], 16:17:50 STI panel 2020 [employer] [facility], [address] [place] [address], [address], 14:47:10 obstetric screen + HIV, serum or blood 2020 [facility] [employer] [facility], [address] [place], [address], 16:05:31 hepatitis C virus Ab, serum 2020 [facility] [employer] [facility], [address] [place], [address], 16:05:32 culture, urine 2020 [facility] [employer] [facility], [address] [place], [address], 20:51:48 HbA1c (hemoglob in A1c), blood 2020 [employer] [facility], [address] [facility], [place], [address], 16:05:33 varicella -zoster igg Ab screen, serum 2020 [facility] [employer] [facility], [address] [facility], [place], [address], 16:05:32 Referral None recorded. Procedures None recorded. Surgeries None recorded. Imaging US, obstetric , transvagi nal 2020 [email or web address] Not available 12:30:02 Medication Orders None recorded. Patient TargetsNo targets recorded. Patient InstructionsNo instructions recorded. Reason for Referral None Reported. Results Created Date Observation Date Name Description Value Unit Range Abnormal Flag Note LastModifiedBy Organization Detail LastModifiedTime 09/03/2009/04/2021 STI PANEL trichomonas vaginalis TRICH neg negati ve Not Available [place], [address], 09/04/2021 14:47:10 09/03/20 21 09/04/2021 STI PANEL chlamydia trachomatis CT neg negati ve If both Pap and Endoc ervic al swabs are colle cted, the Prese rvCyt Solut ion liqui d Pap speci men must be colle cted befor e the endoc ervic al swab speci men. Not Available [place], [address], 09/04/2021 14:47:10 09/03/20 21 09/04/2021 STI PANEL neisseria gonorrhoeae GC neg negati ve If both Pap and Endoc ervic al swabs are colle cted, the Prese rvCyt Solut ion liqui d Pap speci men must be colle cted befor e the endoc ervic al swab speci men. [place], [address], 09/04/2021 14:47:10 09/03/20 21 09/04/2021 OBSTE TRIC PANEL W/FOU RTH GENER ATION HIV white blood cell count 7.2 thous and/u L 3.8-10 .8 normal Not Available [address], [address], 09/04/2021 16:05:31 09/03/20 21 09/04/2021 OBSTE TRIC PANEL W/FOU RTH GENER ATION HIV red blood cell count 5.03 megan on/uL 3.80-5 .10 normal Not Available [address] [place], [address], 09/04/2021 16:05:31 09/03/20 21 09/04/2021 OBSTE TRIC PANEL W/FOU RTH GENER ATION HIV hemoglobin 13.3 g/dL 11.7-1 5.5 normal Not Available [address], [address], 09/04/2021 16:05:31 09/03/20 21 09/04/2021 OBSTE TRIC PANEL W/FOU RTH GENER ATION HIV hematocrit 40.2 % 35.0-4 5.0 normal Not Available [address], [address], 09/04/2021 16:05:31 09/03/20 21 09/04/2021 OBSTE TRIC PANEL W/FOU RTH GENER ATION HIV MCV 79.9 fL 80.0-1 00.0 low Not Available [facility] [address], [address], 09/04/2021 16:05:31 09/03/20 21 09/04/2021 OBSTE TRIC PANEL W/FOU RTH GENER ATION HIV MCH 26.4 pg 27.0-3 3.0 low Not Available [address], [address], 09/04/2021 16:05:31 09/03/20 21 09/04/2021 OBSTE TRIC PANEL W/FOU RTH GENER ATION HIV MCHC 33.1 g/dL 32.0-3 6.0 normal Not Available [address], [address], 09/04/2021 16:05:31 09/03/20 21 09/04/2021 OBSTE TRIC PANEL W/FOU RTH GENER ATION HIV RDW 14.6 % 11.0-1 5.0 normal Not Available [address], [address], 09/04/2021 16:05:31 09/03/20 21 09/04/2021 OBSTE TRIC PANEL W/FOU RTH GENER ATION HIV platelet count 285 thous and/u L 140-40 0 normal Not Available [address], [address], 09/04/2021 16:05:31 09/03/20 21 09/04/2021 OBSTE TRIC PANEL W/FOU RTH GENER ATION HIV MPV 10.1 fL 7.5-12 .5 normal Not Available [address], [address], 09/04/2021 16:05:31 09/03/20 21 09/04/2021 OBSTE TRIC PANEL W/FOU RTH GENER ATION HIV absolute neutrophils 5270 cells /uL 1500-7 800 normal Not Available [address], [address], 09/04/2021 16:05:31 09/03/20 21 09/04/2021 OBSTE TRIC PANEL W/FOU RTH GENER ATION HIV absolute lymphocytes 1325 cells /uL 850-39 00 normal Not Available [address], [address], 09/04/2021 16:05:31 09/03/20 21 09/04/2021 OBSTE TRIC PANEL W/FOU RTH GENER ATION HIV absolute monocytes 490 cells /uL 200-95 0 normal Not Available [facility] [address] [address] [place], [address], 09/04/2021 16:05:31 09/03/20 21 09/04/2021 OBSTE TRIC PANEL W/FOU RTH GENER ATION HIV absolute eosinophils 108 cells /uL 15-500 normal Not Available [address] [address] [place], [address], 09/04/2021 16:05:31 09/03/20 21 09/04/2021 OBSTE TRIC PANEL W/FOU RTH GENER ATION HIV absolute basophils 7 cells /uL 0-200 normal Not Available [facility] [address] [address] [place], [address], 09/04/2021 16:05:31 09/03/20 21 09/04/2021 OBSTE TRIC PANEL W/FOU RTH GENER ATION HIV neutrophils 73.2 % normal Not Available [facility] [address] [address] [place], [address], 09/04/2021 16:05:31 09/03/20 21 09/04/2021 OBSTE TRIC PANEL W/FOU RTH GENER ATION HIV lymphocytes 18.4 % normal Not Available [address] [address] [place], [address], 09/04/2021 16:05:31 09/03/20 21 09/04/2021 OBSTE TRIC PANEL W/FOU RTH GENER ATION HIV monocytes 6.8 % normal Not Available [facility] [address] [address] [place], [address], 09/04/2021 16:05:31 09/03/20 21 09/04/2021 OBSTE TRIC PANEL W/FOU RTH GENER ATION HIV eosinophils 1.5 % normal Not Available [facility] [address] [address] [place], [address], 09/04/2021 16:05:31 09/03/20 21 09/04/2021 OBSTE TRIC PANEL W/FOU RTH GENER ATION HIV basophils 0.1 % normal Not Available [address] [address] [place], [address], 09/04/2021 16:05:31 09/03/20 21 09/04/2021 OBSTE TRIC PANEL W/FOU RTH GENER ATION HIV antibody screen, RBC w/refl id, titer and Ag NO ANTIBO DIES DETECT ED normal Refer ence range No antib odies detec karley This assay is a scree armani test for the detec tion of red blood cell antib odies . The test is not to be used for pretr ansfu luis antonio scree armani or for the medic al manag ement of an alloi mmuni zed pregn nancy. Not Available [address] [address] [place], [address], 09/04/2021 16:05:31 09/03/20 21 09/04/2021 OBSTE TRIC PANEL W/FOU RTH GENER ATION HIV ABO group O Not Available [address] [address] [place], [address], 09/04/2021 16:05:31 09/03/20 21 09/04/2021 OBSTE TRIC PANEL W/FOU RTH GENER ATION HIV Rh type RH(D) POSITI VE For addit ional infor joy yu e refer to http: //[facility] stDia gnost ics.c om/fa q/FAQ 111 (This link is being provi ded for infor stefani elise/ debra ferreira purpo ses only. ) Not Available [address] [address] [place], [address], 09/04/2021 16:05:31 09/03/20 21 09/04/2021 OBSTE TRIC PANEL W/FOU RTH GENER ATION HIV RPR (DX) w/refl titer and confirmatory testing NON-RE ACTIVE non-re active normal Not Available [facility] [address] [address] [place], [address], 09/04/2021 16:05:31 09/03/20 21 09/04/2021 OBSTE TRIC PANEL W/FOU RTH GENER ATION HIV hepatitis B surface antigen NON-RE ACTIVE non-re active normal Not Available [facility] [address] [address], [place], [address], 09/04/2021 16:05:31 09/03/20 21 09/04/2021 OBSTE TRIC PANEL W/FOU RTH GENER ATION HIV rubella Ab (IgG), immune status 0.99 index low Index Inter preta tion ----- ----- ----- ---- <0.90 Not consi stent with immun ity 0.90- 0.99 Equiv ocal > or = 1.00 Consi stent with immun ity The prese nce of rubel la IgG antib benigno sugge sts immun izati on or past or curre nt infec tion with rubel la virus . Not Available [facility] [address] [address], [place], [address], 09/04/2021 16:05:31 09/03/20 21 09/04/2021 OBSTE TRIC PANEL W/FOU RTH GENER ATION HIV HIV Ag/Ab, 4TH gen NON-RE ACTIVE non-re active normal HIV-1 antig en and HIV-1 /HIV- 2 antib odies were not detec karley. There is no labor atory evide nce of HIV infec tion. PLEAS E NOTE: This infor matio n has been discl osed to you from recor ds whose confi denti ality may be prote cted by state law. If your state requi res such prote ction , then the state law prohi bits you from jj anderson any furth er discl osure of the infor matio n witho ut the speci fic writt en conse nt of the perso n to whom it perta ins, or as other ecsoto permi tted by law. A gener al autho rizat ion for the relea se of medic al or other infor matio n is NOT suffi cient for this purpo se. For addit ional infor matio n pleas e refer to http: //[facility] stdia gnost ics.c om/fa q/FAQ 106 (This link is being provi ded for infor matio nal/ educa blanca l purpo ses only. ) The perfo rmanc e of this assay has not been clini stanley valid ated in patie nts less than 2 years old. Not Available [facility] [address] [address] [place], [address], 09/04/2021 16:05:31 09/03/20 21 09/04/2021 HEPAT ITIS C AB W/REF L TO HCV RNA, QN, PCR hepatitis C antibody NON-RE ACTIVE non-re active normal Not Available [facility] [address] [address] [place], [address], 09/04/2021 16:05:32 09/03/20 21 09/04/2021 HEPAT ITIS C AB W/REF L TO HCV RNA, QN, PCR index 0.01 <1.00 normal HCV antib benigno was non-r eacti ve. There is no labor atory evide nce of HCV infec tion. In most cases , no furth er actio n is requi red. Howev er, if recen t HCV expos ure is suspe cted, a test for HCV RNA (test code 01526 ) is sugge sted. For addit ional infor matio n pleas e refer to http: //[facility] stdia gnost ics.c om/fa q/FAQ 22v1 (This link is being provi ded for infor matio nal/ educa blanca l purpo ses only. ) Not Available [facility] [address] [address] [place], [address], 09/04/2021 16:05:32 09/03/20 21 09/04/2021 VARIC CARLY ZOSTE R VIRUS ANTIB BENIGNO (IGG) varicella zoster virus antibody (IgG) 2402.0 0 index normal Index Inter preta tion ----- ---- ----- ----- ----- ----- -- <135. 00 Negat donato - Antib benigno not detec karley 135.0 0 - 164.9 9 Equiv ocal > or = 165.0 0 Posit donato - Antib benigno detec karley A posit donato resul t indic ates that the patie nt has antib benigno to VZV but does not diffe renti ate betwe en an activ e or past infec tion. The clini choco diagn osis must be inter prete d in conju nctio n with the clini choco signs and sympt oms of the patie nt. This assay relia rosita measu res immun ity due to previ ous infec tion but may not be sensi tive enoug h to detec t antib odies induc ed by vacci natio n. Thus, a negat donato resul t in a vacci nated indiv idual does not neces saril y indic ate susce ptibi lity to VZV infec tion. A more sensi tive test for vacci natio n-ind uced immun ity is Varic carly dickey Virus Antib benigno Immun ity Alison n, ACIF. Not Available [facility] [address] [address] [place], [address], 09/04/2021 16:05:32 09/03/20 21 09/04/2021 HEMOG LOBIN A1C hemoglobin A1C 5.2 %_of_ total _HGB <5.7 normal Not Available [facility] [address] [place], [address], 09/04/2021 16:05:33 09/03/20 21 09/04/2021 CULTU RE, URINE , ROUTI NE culture, urine, routine SEE NOTE CULTU RE, URINE , ROUTI NE Micro Numbe r: [id number] Test Statu s: Final Speci men Sourc e: Urine , clean catch Speci men Quali ty: Adequ ate Resul t: Growt h of mixed davon was isola karley, sugge sting proba ble conta minat ion. No furth er testi ng will be perfo rmed. If clini stanley indic ated, recol lecti on using a metho d to minim ize conta minat ion, with promp t trans gabriel to Urine Cultu re Trans port Tube, is recom saranya d. Not Available [facility] [address] [place], [address], 09/04/2021 20:51:48 09/03/20 21 09/03/2021 pregn nancy test, urine HCG positi ve Not Available [facility] [address] [facility], [place], [address], 09/03/2021 11:32:33 09/04/20 21 09/03/2021 US, obste tric, trans vagin al No observ ation record ed. [email or web address] Janice [address], [place], [address], 09/04/2021 00:30:36 09/04/20 21 09/03/2021 US, obste tric, trans vagin al No observ ation record ed. [email or web address] Janice [address], [place], [address], 09/04/2021 00:30:37 09/04/20 21 09/03/2021 US, obste tric, trans vagin al No observ ation record ed. Janice [address], [place], [address], 09/04/2021 00:30:38 09/04/20 21 09/03/2021 US, obste tric, trans vagin al No observ ation record ed. [email or web address] Janice [address], [place], [address], 09/04/2021 00:30:37 09/04/20 21 09/03/2021 US, obste tric, trans vagin al No observ ation record ed. [email or web address] Janice [address], [place], [address], 09/04/2021 00:42:01 Result Notes None recorded. Problems Name Problem SNOMED Code Status Onset Date Resolution Date Notes Provider Name and Address Organization Details Recorded Time Asthma 275325427 Completed Katya [employer], [employer] [facility] 3 15:50:19 Past history of section 269919419 Completed Katya [employer] null, [employer] [facility] 3 15:50:19 56503619 Completed 202012/18/2022 Katya [employer] null, [place] - [employer] [facility] IV 15:50:22 Problem Notes None recorded. Procedures Surgical History Date Name Laterality Status Provider Name and Address Organization Details Recorded Time Date of Last Pap Smear completed Katya [employer] [facility] HEALTH IV 09/03/2021 11:32:57 C Section completed Katya [employer] [facility] IV 09/03/2021 11:33:10 Imaging Results None recorded. Procedure Notes None recorded. Medical Equipment None Reported. Allergies Allergen ID Allergen Name Allergen Category Reaction Reaction Severity Criticality Documentation Date Start Date Code Code System Note Provider Name and Address Organization Details Recorded Time 839048 Substance with sulfonami de structure and antibacte rial mechanism of action (substanc e) medicatio n Not available Not available Not available 09/03/2021 41639 8003 SNOMED Katya Deleon [employer], [facility] IV 11:32:52 Medications Name Sig Start Date Stop Date Status Note LastModified by Organization Details LastModified Time medroxyprog esterone 10 mg tablet TAKE 1 TABLET BY MOUTH EVERY DAY FOR 10 DAYS 09/03 completed Not Available Not Available Not Available prednisone 10 mg tablet 09/03 completed Not Available Not Available Not Available benzonatate 200 mg capsule 09/03 completed Not Available Not Available Not Available albuterol sulfate HFA 90 mcg/actuati on aerosol inhaler INHALE 2 PUFFS BY MOUTH EVERY 4 HOURS NEEDED FOR SHORTNESS OF BREATH active Not Available Not Available No t Available amoxicillin 875 mg-franklin gillespie clavulanate 125 mg tablet TAKE 1 TABLET BY MOUTH TWICE DAILY 09/03 completed Not Available Not Available Not Available Vitals Date Recorded Body weight Body temperature Systolic And Diastolic Provider Name and Address Organization Details Last Updated DateTime 10/01/2021 186292.324 222 g 97.3 [degF] 108/76 mm[Hg] Katya Deleon [facility] [employer] 10/01/2021 11:15:29 Date Recorded Body weight Body temperature Systolic And Diastolic Provider Name and Address Organization Details Last Updated DateTime 09/03/2021 548422.975 228 g 97.2 [degF] 128/82 mm[Hg] Katya Deleon [place] [employer] 09/03/2021 11:37:10 Social History Question Answer Notes LastModified by [employer] Details LastModified Time Tobacco Smoking Status Former Smoker Katya Deleon [facility] [employer] 09/03/2021 11:33:06 What Type Of Diet Are You Following? VEGETARIAN Information not available 09/03/2021 What Is Your Relationship Status? Information not available 09/03/2021 Are You Sexually Active? Yes Information not available 09/03/2021 Sex: Unknown Functional Status Question Answer Note LastModified by [employer] Details LastModified Time What is your level of alcohol consumption? None Information not available 09/03/2021 Do you or have you ever used e-cigarettes or vape? Former user of electronic cigarettes Information not available 09/03/2021 What is your exercise level? Occasional Information not available 09/03/2021 Mental Status None recorded. Family History Nothing Reported. Medical History Condition Response Polycystic Ovarian Syndrome Y Seasonal allergies Y Gynecological History Statement/Question Response Flow Moderate Date of LMP 06/21/2021 Frequency of Cycle (Q days) 40+ Date of Last Pap Smear 05/08/2021 Duration of Flow (days) 10 Age at Menarche 9 Obstetrics History GPAL:G 2 P 1 0 0 1 Type Value Full Term 1 Living 1 Total 2 Past Encounters Encounter ID Performer Location Encounter Start Date Encounter Closed Date Diagnosis/Indication Diagnosis SNOMED-CT Code Diagnosis ICD10 Code Diagnosis IMO Codes Diagnosis Note [id number] Lynda Gillespie [facility] [address] [place] [address] 09/03/2021 11:28:35 09/11/2021 12:30:02 62596791 Z33.1 Routine an tenatal care 840534732 Z34.01 Z34.81 O09.511 O09.721 [id number] Lynda Gillespie [facility] [address] [place] [address] 10/01/2021 11:00:54 10/11/2021 09:03:19 Health Concerns Section Related Observation LastModified by Organization Detai ls LastModified Time None Recorded Concern Status LastModified by Organization Details LastModified Time None Recorded Advance Directives Directive None Recorded Payers Insurance Date Sequence Insurance Name Policy Number Policy Darnell Covered Member ID Darnell Member ID Guarantor Name 05/22/2022 1 [employer] (PPO) [id number] Ania Sheppard [id number] 2 Ania Sheppard Notes Date Note Type Note Provider Name and Address Organization Details Recorded Time 09/03/2021 text/html Confirmation VisitReported by PatientHPIFor obstetrics and gynecology, patient reportsno bleeding between periods. OB ProblemReported by PatientHPIFor associated symptoms, patient reportsno abdominal pain,no cramping,no bleeding,no vaginal discharge,no vaginal/vulvar itching or irritation,no headache,no dizziness, andno breathlessness.no back painROS as noted in the HPI Lynda Alves [facility] [place], [address], [facility] 09/12/2021 18:22:27 10/01/2021 text/html OB ProblemReport ed by PatientHPIFor associated symptoms, patient reportsno abdominal pain,no cramping,no bleeding,no vaginal discharge,no vaginal/vulvar itching or irritation,no headache,no dizziness, andno breathlessness.no back painROS as noted in the HPI Lynda Alves [facility] [place], [address], [facility] 10/01/2021 12:12:15 OBGyn Episode Ob Episode Information Episode Created Date Number of Fetuses Patient Bloodtype Patient rh Status Prepregnancy Weight lbs Domestic Partner Domestic Partner Phone Father Name Manager Clinical Applications Status 09/03/20 21 1 O Positive 244.4 CLOSED Fetus Data First Name Last Name Admitted to NICU Weight (g) Sex Living Outcome Pediatric Complications Fetus ID Race Codes Race Delivery Type [id number] Problems Problem Notes Problem Name Start Date End Date Resolution Snomed Code Not e Asthma 012992152 Past history of ce sarean section 823982907 Justin Calculation Initial Justin Date Initial Exam Date Initial Exam Provider Initial Ultrasound Date Last Menstrual Period Date Ultra Sound Weeks Gestation 04/15/2022 09/03/2021 09/03/2021 06/21/2021 8 Eighteen To Twenty Week Justin Update Ultra Sound Date Fundal Height At Umbil Quickening Date Ultra Sound Latest Weeks Gestation Final Justin Confirmed By Final Justin Confirmed Date Final Justin Date Ultra Sound Latest Days Gestation 0 03/28/20 22 0 Pre-anand Flowsheet Flowsheet Date 09/03/2021 Vazquez Score Blood Edema Fundus Height Fundus Units Glucose Ketones Leukocytes Nitrite Labor Signs Protein Cervic Dilation Cervic Effacement Cervic Station none none neg Type Weight in lbs Pre/Post Dialysis Refused Weight 244.880449118939 BP Diastolic BP Location Tested BP Systolic BP Type 82 128 Fetus Heart Rate Present A 165 Fetus Movement Comments Flowsheet Date 10/01/2021 Vazquez Score Blood Edema Fundus Height Fundus Units Glucose Ketones Leukocytes Nitrite Labor Signs Protein Cervic Dilation Cervic Effacement Cervic Station none neg Type Weight in lbs Pre/Post Dialysis Refused Weight 240.019071772419 BP Diastolic BP Location Tested BP Systolic BP Type 76 108 Fetus Heart Rate Present A 157 Fetus Movement A Yes Comments Discussed PENTA at next visi t. Menstrual History Last Menstrual Date Menses Monthly On Bcp Conception Prior Menses Frequency Hcg Plus Date Menarche Onset Age 896/21/2021 Genetic Screening And Infection History Question Response Note Recent Travel History Outside of Country false Cystic Fibrosis false Any Other Genetic History false Noy Disease false Other Infection History false Thalassemia (Indian, Armenian, Mediterranean, Or Background): MCV < 80 false Patient Or Baby's Father Had A Child With Defects Not Listed Above false Live With Someone With TB Or Exposed To TB false Patient's Age Will Be 35 Years Or Older At Estim ated Date of Delivery false Recurrent Loss, Or A Stillbirth false Hemoglobinopathy Or Carrier false Patient Or Partner Has History Of Genital Herpes false Intellectual Disability/Autism false Maternal Metabolic Disorder (eg, Type 1 Diabetes , PKU) false History of Hepatitis false Beau-Sachs (eg, Temple, Cajun, Kiswahili-[place]) f alse History Of STD, Gonorrhea, Chlamydia, HPV, Syphi lis false Prior GBS-infected child false History of HIV false Personal or Family History o f Neural Tube Defect (Meningomyelocele, Spina Bifida, Or Anencephaly) false Hemophilia Or Other Blood Disorders false Mental Retardation/Autism false [place]'s Chorea false If Yes, Was Person Tested For Fragile X? false Other Inherited Genetic Or Chromosomal Disorder false If Yes, Agent(s) And Strength/Dosage false Sickle Cell Disease Or Trait () false Personal or Family History of Congenital Heart D efect false Rash Or Viral Illness Since Last Menstrual Perio d false Muscular Dystrophy false Medications (including Suppl ements, Vitamins, Herbs, OTC Drugs), Illicit/Recreational Drugs, Alcohol false Other Structural Defect false Down Syndrome false Delivery Information Delivery Date Delivery Type Labor Anesthesia Weeks Gestation Incision Type Labor Labor Length Hrs Delivered By Post Complications Tubal Sterilization Discharge Date Comments 2 Sponta neous [facility] idural 42 false Discharge Information Feeding Method Contraceptive Method Maternal HG B and HCT Levels
--- OUTSIDE RECORDS SUMMARY | 2025-07-10 13:28 | XMS_ITS | Clinical Summary ---
Author Organization [facility] at the [facility] Office Center Address [address] [place] [address] Care Team Providers Care Supervisor [employer] Name Role Phone Nando Shane DO Primary Care Provider [phone] Allergies Active Allergy Reactions Criticality Noted Date Comments Sulfa (Sulfonamide Antibiotics) Diarrhea,Dizziness,Shortnes s of breath,Rash High 05/13/2021 Medications albuterol HFA (PROVENTIL HFA,VENTOLIN HFA,PROAIR HFA) 90 mcg/actuation inhalerIndications :Mild intermittent asthma without status asthmaticus without complication Inhale 2 puffs every 4 (four) hours as needed for shortness of breath 1 Inhaler 3 1 Active PNV no.95/ferrous fum/folic ac ( MULTIVITAMINS ORAL) Take by mouth Active acetaminophen 500 mg capsuleIndications :Pain Take 2 capsules (1,000 mg total) by mouth every 6 (six) hours 90 tablet 1 4 Active docusate sodium (COLACE) 100 mg capsuleIndications :constipation,Stoo l Softener Take 1 capsule (100 mg total) by mouth 2 (two) times a day 60 capsule 2 4 Active gabapentin (NEURONTIN) 300 mg capsule Take 1 capsule (300 mg total) by mouth 2 (two) times a day 60 capsule 11 4 Active ibuprofen (ADVIL,MOTRIN) 600 mg tabletIndications: Cramps Take 1 tablet (600 mg total) by mouth every 6 (six) hours 90 tablet 4 Active oxyCODONE (ROXICODONE) 5 mg immediate release tabletIndications: Pain Take 1 tablet (5 mg total) by mouth every 4 (four) hours as needed for pain 15 tablet 4 Active polyethylene glycol (MIRALAX) 17 gram/dose bulk powderIndications: constipation Take 17 g by mouth daily 235 g 1 4 Active Active Problems Problem Noted Date Diagnosed Date IUFD at 20 weeks or more of gestation 10/28/2023 Encounter for routine follow-up 10/28 Overview (10/30/2023): # ID: Afebrile. No signs/symptoms of infection. S/p 48 hours keflex/metronidazole 500 mg q8hr due to BMI >40. # Heme: EBL 700 mL. POD#1 Hgb 12.1. Hemodynamically stable. # CV/Pulm: Vital signs stable, within normal limits. # Asthma: Well controlled on rare albuterol # GI/: Tolerating PO. Voiding spontaneously. # Pain: Controlled with above regimen. # MOC: Partner Vasectomy. # MOF: . Urine drug screen not indicated. Patient informed of results: N/A. # IUFD: notable for two knots in umbilical cord. Plan for private home (to be chosen), undecided on autopsy/cytogenetics. # Post DVT prophylaxis: The patient has the following MAJOR risk factors BMI >/= 40 and the following MINOR risk factors delivery and parity >/=3. enoxaparin 40 mg BID ordered for VTE prophylaxis. # Disposition: Follow up task not sent. Continue routine postoperative care. Monochorionic monoamniotic twin gestation, antep artum 09/16/2023 Female infertility 07/22/2023 False positive RPR test 07/22/2023 Overview (08/11/2023): RPR was positive (titer 1:1) on 06/03/2023 with negative confirmatory testing (FTA-ABS) on 06/03/2023. Plan: [ ] repeat 3rd trimester RPR Polycystic ovary syndrome 11/26/2021 Low back pain without sciatica 03/25/2021 Assessment & Plan (03/25/2021 9:39 AM CDT): Chronic, stable, states only symptomatic when she first gets up in the morning- will monitor for worsening symptoms. Physical exam, annual 03/25/2021 Assessment & Plan (03/25/2021 9:38 AM CDT): Reviewed past and current medical history, surgical history, social history, family history, current medications, and allergies. A ROS and PE were performed. Inhaler was refilled. Discussed well woman exam/cervical cancer screening (UTD per patient), monthly breast self-exams, and recommended immunizations. Patient will follow-up in annually for a PE or sooner if needed. Chronic pain of both knees 03/25/2021 Assessment & Plan (03/25/2021 9:40 AM CDT): Chronic, stable, not on medication for pain-will monitor for worsening pain.. Sciatica 04/22/2019 Overview (07/22/2023): since Resolved Problems Problem Noted Date Diagnosed Date Resolved Date GBS bacteriuria 08/14/2023 11/09/2023 Overview (10/16/2023): Noted on urine culture 08/12/2023. Plan for delivery given MCMA twin gestation. Supervision of high-risk pre gnancy, second trimester 08/11/2023 11/09/2023 Overview (10/02/2023): [facility] RN: Mary Rebolledo - [phone] [x] Full M Care; [] Red Team [] Blue Team [facility] [x] Dating Criteria: 1st trimester ultrasound with MARY 12/20/2023 [x] Labs: Rh [O pos], Ab [negative], Rubella [immune], HIV [non- reactive], HepBSAg [negative], RPR [reactive], Hep C [non-reactive], Varicella [not done], GC/CT [Neg/Neg] [x] Aneuploidy: normal aneuscreen from amniocentesis of recipient twin [] Carrier Screening: not done [x] CBC/Hgb: 12.3/36.8, plt 302 [x] Early 1hr GTT (if indicated) - deferred 08/12 [x] UCx: GSB positive [x] Pap: NILM/HPV neg (05/29/2022) [x] Flu Shot (May-Aug): Declined 08/19/2023 [] COVID [x] LD ASA [x] EPDS [1 ]; PNBHS referral (if indicated) 2nd Tri Labs: [x] Anatomy ultrasound: complete 07/22/2023 [x] CBC/1hr gtt at 24-28wks: 12.1, 100 [x] Tdap (27-36wks): declines 3rd Tri Labs: [] CBC/HIV/RPR/T&S: 12.1, NR x2 on 09/16 at 26w3d. Can redraw at 32-33 weeks. [x] GBS: positive in urine [] GC/CT (if indicated): [] testing: twice weekly BPPs [x] RSV declines Counseling [x] MOD: [x] Place of delivery: [facility] [] Last clinic visit SVE: [] IOL start agent: [] Epidural: [] Blood Products [] Consents signed: [] MOC: [] Method of feeding: [] Principal Clerk: [] PP Depression Discussed: History of delivery affecting 08/11/2023 11/09/2023 Overview (10/02/2023): - Ms. Sheppard has a history of delivery in G1 for failed IOL at 41 weeks, followed by in G2 . In the setting of functional MCMA , delivery is recommended due to risk of cord entanglement, and this will be scheduled at 32-34 weeks. Reviewed again with patient 08/19. - 10/02: Patient strongly declines delivery prior to 34 weeks gestation due to risk of prematurity. Reviewed extensively the risk of stillbirth and co-twin demise or neurologic event with expectant management which patient accepts. She does not desire delivery until 34 weeks growth restriction antepartum 08/11/2023 11/09/2023 Overview (10/16/2023): FGR of donor twin 1 noted (EFW 9% on 08/12). Improved to 14th %tile on 10/16/22 Iatrogenic monoamniotic and monochorionic twin gestation in second trimester 07/22/202311/08 Overview (10/02/2023): History - S/p counseling by [facility]. - Fetoscopy and amniodrainage performed on 07/22 complicated by incidental septostomy and inability to perform laser photocoagulation. - Patient underwent echo on 08/12 which was within normal limits. Normal amniocentesis of recipient twin. Anatomy ultrasound completed on 07/22/23 but findings have continued to change on subsequent scans. - Formal ultrasound on 09/16: Twin A 586g (6%), Twin B 668 (24%), MCA Doppler PSV and UA Doppler PI are wnl. - Patient presented for pre-planned admission on 09/16 for ongoing monitoring of [place] twins, TTTS Stage 3, and FGR of Twin A. On admission, BMZ/Mg/PCN deferred. Patient elected for BID NSTs for 1h each which were reassuring during admission after prolonged monitoring. On hospital day two, patient expressed desire to discharge with eventual return to [facility] between 28-32w. After undergoing counseling with Dr. Whyte re: stillbirth, patient elected to discharge. - Patient will continue weekly dopplers (next to be done on 09/21) , weekly NST/BPP, and growth ultrasounds q3w. - S/p pediatrics consultation - 10/02: reviewed clinical course above and diagnosis of Aurora twins, FGR. Discussed risk of cord accident and stillbirth which can have an affect on both twins including co-twin demise or neurologic event. Discussed recommendation for inpatient management for monitoring which patient declines. Given not amenable to inpatient monitoring, then reviewed recommendation for twice weekly NSTs and BPPs. Given the difficulty with inpatient NSTs, patient strongly desires twice weekly BPPs at this time. Reviewed we may miss FHR changes such as decelerations without non-stress tests. These would be indicators for closer monitoring or delivery to avoid an impending stillbirth. Patient understands these risks and desires to proceed with outpatient twice weekly BPPs at this time. Patient also strongly declines delivery prior to 34 weeks gestation due to risk of prematurity. Reviewed extensively the risk of stillbirth and co-twin demise or neurologic event with expectant management which patient accepts. She does not desire delivery until 34 weeks Plan: [x] Continue 81 mg aspirin daily for preeclampsia prevention [x] Recommend echocardiogram at 20-22 weeks; done 08/20 [x] Neonatology consultation in anticipation of delivery [x] Inpatient admission was recommended at a gestational age at which delivery would be indicated and desired for non-reassuring status-planned for 28-32 weeks, patient declines [] Administration of corticosteroids in anticipation of early delivery, optimally within 1 week of delivery. Will need to be coordinated at next visit [] Delivery should be planned at 32-34 weeks gestation by delivery. Patient desires 34 weeks s/p counseling on 10/02 Twin to twin transfusion, antepartum 07/22/2023 11/09/2023 Overview (08/19/2023): Previously counseled by [facility] on 07/22. Fetoscopy and amniodrainage performed on 07/22 complicated by incidental septostomy and inability to perform laser photocoagulation. Ultrasound today demonstrated normal bladders and normal UA, DV, and MCA dopplers for both twins with functional MCMA physiology as above. Plan: -Repeat US weekly History of pre-eclampsia in prior , currently 07/22/2023 11/09/2023 Overview (08/19/2023): Ms. Sheppard has a history of pre-eclampsia without severe features in her G2 . We discussed her elevated risk of pre-eclampsia during this especially in the setting of twins. For pre-eclampsia prevention, we discussed starting ASA 81 mg daily. Plan: -Continue ASA 81 mg daily -Close BP monitoring Twin to twin transfusion in second trimester 08/11/2023 Asthma affecting i n second trimester 03/25/2021 11/09/2023 Overview (10/01/2023): Ms. Sheppard has a history of mild intermittent asthma controlled with rare PRN albuterol use. - s/p counseling PLAN: Continue PRN albuterol use Assessment & Plan (03/25/2021 9:42 AM CDT): Chronic, uncontrolled-refills sent to pharmacy for her albuterol inhaler, however recommended considering a daily controller for better asthma control if consistently using her rescue inhaler > 2 times a week (states doesn't want to be on a daily controller at this time, however states she uses her inhaler on average 4 times a week). Obesity complicating pregnan cy in second trimester 03/25/2021 11/09/2023 Overview (10/01/2023): - s/p counseling Plan: -Early 1h GTT deferred today given GA 21 weeks -Plan for 1h GTT at 24-28 weeks, 100 -ASA 81 mg daily Assessment & Plan (03/25/2021 9:44 AM CDT): Chronic, with reported history of 55 lb weight loss, eating a vegetarian diet- encouraged portion control, avoid high fat dairy, and continue to get < 10,000 steps/day. Encounters Date Type Department Care Team Description 06/19/2025 Telephone Health system Medicine Maternal- Medicine [address] [facility] 7[address] [place] [address] Negrita Gasca RN Follow up from Last 3 Months Immunizations Immunization Administration Dates Next Due Influenza, Unspecified 05/08/2020(Deferred: Leatha ent decision) MMR 04/28/2014 Moderna SARS-CoV-2 Monovalen t Vaccination (12+ YRS) 03/22/2021(Deferred: Patient decision) Tdap 09/07/2013 Surgical History Surgery Date Site/Laterality Comments SECTION ARTHROSCOPIC REPAIR ACL 09/07/2016 - 09/06/2017 knee surgery KNEE CARTILAGE SURGERY 09/07/2017 - 09/06/2018 Medical History Medical History Date Comments Asthma Family History Medical History Relation Name Comments Hypertension Mother Relation Name Status Comments Mother Alive Social History Tobacco Use Types Packs/Day Years Used Date Smoking Tobacco: Never Tobacco Cessation:Counseling Given: Not Answered Social Connection and Isolation Panel Answer Date Recorded In a typical week, how many times do you talk on the phone with family, friends, or neighbors? Three times a week 09/16/2023 How often do you get togethe r with friends or relatives? Twice a week 09/16/2023 How often do you attend chur ch or uatsdin services? Never 09/16/2023 Do you belong to any clubs o r organizations such as sabianism groups, unions, fraternal or athletic groups, or school groups? No 09/16/2023 How often do you attend meet ings of the clubs or organizations you belong to? Never 09/16/2023 Are you , , di vorced, , never , or living with a partner? 09/16/2023 Overall Financial Resource Strain (CARDIA) Answe r Date Recorded How hard is it for you to pa y for the very basics like food, housing, medical care, and heating? Not hard at all 09/16/2023 PHQ-2 Answer Date Recorded PHQ-2 Total Score (If total score is 3 or more points, staff should administer the PHQ-9) 0 09/16/2023 [facility] - Occupational Stress Questionnaire Answer Date Recorded Do you feel stress - tense, restless, nervous, or anxious, or unable to sleep at night because your mind is troubled all the time - these days? To some extent 09/16/2023 Exercise Vital Sign Answer Date Recorde d On average, how many days pe r week do you engage in moderate to strenuous exercise (like a brisk walk)? 0 days 09/16/2023 On average, how many minutes do you engage in exercise at this level? 0 min 09/16/2023 Hunger Vital Sign Answer Date Recorded Within the past 12 months, y ou worried that your food would run out before you got the money to buy more. Never true 09/16/19 24 Within the past 12 months, t he food you bought just didn't last and you didn't have money to get more. Never true 09/16/2023 PRAPARE - Transportation Answer Date Re corded In the past 12 months, has l ack of transportation kept you from medical appointments or from getting medications? No 09/07 In the past 12 months, has l ack of transportation kept you from meetings, work, or from getting things needed for daily living? No 09/16/2023 Housing Stability Vital Sign Answer Hussein e Recorded In the last 12 months, was t here a time when you were not able to pay the mortgage or rent on time? No 09/16/2023 Number of Places Lived in the Last Year Not on f ile 09/16/2023 In the last 12 months, was t here a time when you did not have a steady place to sleep or slept in a skilled nursing (including now)? No 09/16/2023 Personal Safety Answer Date Recorded Have you ever been in or are you currently in a harmful physical or emotional relationship or is someone making you feel afraid or unsafe? Denies 10/28/2023 Comments No Sex and Gender Information Value Date Recorded Sex Assigned at Not on file Legal Sex Female 12:45 AM [employer] Gender Identity Not on file Sexual Orientation Not on file Obstetrics History Para Term AB IAB SAB Ectopic Multiple Livin g Live Births 3 3 2 1 1 3 3 Date Outcome GA Total Labor Labor//3rd Weight Sex Type Anes PTL Layne A1 A5 Name Clin 2013 Term 41w 0d 3.657 kg (8 lb 1 oz) CS-LT ranv N Livin g 2021 Term 3.771 kg (8 lb 5 oz) Livin g 2023 32w 3d 0h 02m 0h 02m 1.956 kg (4 lb 5 oz) F C-Sec tion Combin ed Spinal /Epidu ral Y Demis e 0 0 ONEGir lCryst al FD Cleveland Prince MD Complications:None Delivery Location:[facility] Main C ampus ([facility] L AND D PROCEDURE) 2023 32w 3d 0h 02m 0h 02m 1.97 kg (4 lb 5.5 oz) F C-Sec tion Combin ed Spinal /Epidu ral Y Livin g 9 9 Tripp Cleveland Granados MD Complications:None Delivery Location:[facility] Main C ampus ([facility] L AND D PROCEDURE) Last Filed Vital Signs Vital Sign Reading Time Taken Comments Blood Pressure 120/64 10/31/2023 4:39 AM [employer] Pulse 77 10/31/2023 4:39 AM [employer] Temperature 36.5 C (97.7 F) 10/31/2023 4:39 AM [employer] WORK[employer] Respiratory Rate 18 10/31/2023 4:39 AM [employer] WORK[employer] Oxygen Saturation 98% 10/31/2023 4:39 AM [employer] Inhaled Oxygen Concentration - - Weight 130.5 kg (287 lb 9.6 oz) 024 11:20 AM [employer] Height 167.6 cm (5' 6) 10/28/2023 11:2 0 AM [employer] Body Mass Index 46.42 10/28/2023 11:20 AM [employer] WORK[employer] Plan of Treatment Health Maintenance Due Date Last Done Comments Hepatitis C Screening 1990 Hepatitis B Screening 2008 Varicella Vaccines (1 of 2 - 13+ 2-dose series) 05/26/2014 HPV Vaccines (1 - 3-dose SCD M series) 2017 Regular Well Visit/Exam 18-64 03/22/2022 03/22/2021 Cervical Cancer Screening 05/09/2022 05/09/2021 Depression Screening 07/22/2024 07/22/2023, 07/22/2023, 03/22/2021 Influenza Vaccine (#1) 2025 DTaP/Tdap/Td Vaccine (3 - Td or Tdap) 02/07/2032 02/06/2022, 09/07/2013 Pneumococcal vaccine <65 Aged Out No longer eligible based on patient's age to complete this topic Procedures Procedure Name Priority Date/Time Associated Diagnosis Comments PAP AND HIGH RISK HPV, REFLEX TO GENOTYPING Routine 05/09/2021 4:00 PM CDT from Last 3 Months or Most Recently Relevant to Health Maintenance Results * Pap and High Risk HPV, reflex to Genotyping (05/09/2021 4:00 PM CDT) Pap test 05/09/2021 4:00 PM CDT 05/13/2021 10:46 AM CDT Narrative 05/21/2021 7:03 PM CDT EPIC results best viewed via link to PDF [address] [address] Tele: Tayla Zambrano MD - [facility] REPORT Note to Patients: This report may contain a detailed description of human tissue sent by a health care provider to the laboratory for pathologic evaluation. The content of this report is essential for diagnosis and may provide important critical findings. This information may be unfamiliar to patients to review without a medical professional present. It is advised that the patient review this report in the presence of a health care provider who can answer questions and explain the details. Patient Name: SHEILA SHEPPARD Address: [address] [place] [address], [place], [place] Gender: F : 1990 (Age: 30) Service: Location: N : [id number] [facility] #: [id number] Patient Type: [facility] ANCILLARY Taken: 05/09/2021 Reported: 05/21/2021 Physician(s): ROLANDO Mireles M.D. FINAL DIAGNOSIS: Specimen Type: - ThinPrep Pap and HPV w/ reflex Genotyping Statement of Specimen Adequacy: Source: Cervical/Endocervical - Satisfactory for interpretation - Endocervical /Transformation Zone component present - Case screened using computer assisted imaging technology General Categorization: - Negative for intraepithelial lesion or malignancy Interpretation: - Acute Inflammation j/05/21/2021 19:03 KAHLIL Polk(ASCP), [facility] Report Reviewed and Electronically Signed By KAHLIL Polk(ASCP), [facility] Clerical Data Follow A; [id number] DIAGNOSIS COMMENT: Ancillary Testing: HPV High Risk Group (16, 18, 31, 33, 35, 39, 45, 51, 52, 56, 58, 59, 66 and 68) - Not Detected Reference Range: Not Detected This test was performed using the SHARA 4800 CLINICAL DIAGNOSIS AND HISTORY Last Menstrual Period: 05/03/21 REPORT IMAGES AND/OR SCANNED DOCUMENTS ONLY VIEWABLE IN PDF FORMAT The Pap test is a screening test used to aid in the detection of cervical cancer and its precursors. It should not be the sole means by which malignant and premalignant lesions are diagnosed. Both false negative and false positive results may occur. It also has poor sensitivity for the detection of endometrial lesions and should not be used to evaluate suspected endometrial abnormalities. For these reasons it is most important to obtain Pap tests at regular intervals, as recommended by your physician or nurse practitioner. us Brooke Sherwood [employer] CYTOLOGY ORDERABLES Final Result from Last 3 Months or Most Recently Relevant to Health Maintenance Insurance C[employer] CIGNA CIGNA Advance Directives For more information, please contact: [phone] * Full Code (Latest Code Status on File) Date Activated Date Inactivated Comments 10/28/2023 4:06 PM 10/31/2023 4:13 PM * Full Code Date Activated Date Inactivated Comments 10/28/2023 4:05 PM 10/28/2023 4:06 PM Full CPR in case of cardiopulmonary arrest * Full Code Date Activated Date Inactivated Comments 09/16/2023 3:55 PM 09/17/2023 5:03 PM * Full Code Date Activated Date Inactivated Comments 07/22/2023 1:50 PM 07/22/2023 10:22 PM Care Teams Supervisor [employer] Relationship Specialty Start Date End Date Nando Shane DO PCP - General 03/28/08
--- NOTE | 2025-07-10 13:50 | PC.NURSE ---
While talking to patient she reported that she peed when she fell, Rom plus collected to confirm.
--- NOTE | 2025-07-10 14:15 | PC.NURSE ---
Dr Ash informed that ROM plus was negative.
--- NOTE | 2025-07-11 23:10 | PM.OBTRLD ---
OB - Triage/Final Diagnosis Visit Information Comments/Additional reasons for admission: I have assessed the risk for this patient, Ania Sheppard, and determined that she would benefit from observation care. Final Diagnosis (1) Fall: Code(s): W19.XXXA - Unspecified fall, initial encounter Status: Acute
== END 2025-07-10 14:31 | disposition home or self-care (01) ==
PROVIDERS: Admitting Provider Obstetrics & Gynecology; Visit Provider Obstetrics & Gynecology
DX: O9A.213 Injury, poisoning and certain other consequences of external causes complicating pregnancy, third trimester (principal); Z3A.28 28 weeks gestation of pregnancy; W19.XXXA Unspecified fall, initial encounter
CPT/HCPCS: G0378; G0379